=== PATIENT | male | born 1960 | race Caucasian/White ===

== ENCOUNTER 2018-02-13 21:54 | Emergency (ER) | payer SELFPAY ==
[2018-02-13] MEDS ORDERED: DIPHENHYDRAMINE HCL 50 MG CAPSULE PO ONE (23:40)
[2018-02-13] MEDS ORDERED: LORAZEPAM 1 MG TABLET PO ONE (23:41)
[2018-02-13] MEDS ORDERED: RISPERIDONE 1 MG TABLET PO ONE (23:41)
[2018-02-14] MEDS ORDERED: ZIPRASIDONE MESYLATE INJ/PF 20 MG SDV IM ONE (00:01)
[2018-02-14 00:50] LABS: ABSOLUTE EOSINOPHILS # (AUTO) 0.2 10^3/uL (0.0-0.6); ABSOLUTE LYMPHOCYTES (AUTO) 2.3 10^3/uL (0.5-4.7); ABSOLUTE MONOCYTES (AUTO) 0.5 10^3/uL (0.1-1.4); ABSOLUTE NEUT (AUTO) 1.4 10^3/uL (1.7-8.2); HEMATOCRIT 43.2 % (37.9-51.0); HEMOGLOBIN 15.1 g/dL (13.5-17.0); LYMPHOCYTES % (AUTO) 52.2 % (13-45); MEAN CORPUSCULAR HEMOGLOBIN 35.4 pg (27.0-33.4); MEAN CORPUSCULAR HGB CONC 35.1 g/dL (32.0-36.0); MEAN CORPUSCULAR VOLUME 101 fl (80-97); MONOCYTES % (AUTO) 11.3 % (3-13); PLATELET COUNT 234 10^3/uL (150-450); RED BLOOD COUNT 4.28 10^6/uL (4.35-5.55); RED CELL DISTRIBUTION WIDTH 15.7 % (11.5-14.0); SEGMENTED NEUTROPHILS % (AUTO) 31.5 % (42-78); TOTAL CELLS COUNTED % (AUTO) 100 %; WHITE BLOOD COUNT 4.4 10^3/uL (4.0-10.5)
[2018-02-14 01:15] LABS: ALANINE AMINOTRANSFERASE 30 U/L (21-72); ALBUMIN 4.3 g/dL (3.5-5.0); ALKALINE PHOSPHATASE 65 U/L (38-126); ANION GAP 16 (5-19); ASPARTATE AMINO TRANSFERASE 50 U/L (17-59); BILIRUBIN,DIRECT 0.3 mg/dL (0.0-0.4); BILIRUBIN,TOTAL 0.4 mg/dL (0.2-1.3); BLOOD UREA NITROGEN 4 mg/dL (7-20); CALCIUM 9.2 mg/dL (8.4-10.2); CARBON DIOXIDE 22 mmol/L (22-30); CHLORIDE 111 mmol/L (98-107); GLUCOSE 90 mg/dL (75-110); POTASSIUM 4.4 mmol/L (3.6-5.0); SODIUM 148.6 mmol/L (137-145)
[2018-02-14 01:16] LABS: ACETAMINOPHEN < 10 ug/mL (10-30); SALICYLATE < 1.0 mg/dL (2.0-20.0)
[2018-02-14 01:35] LABS: ALCOHOL 336 mg/dL (NONE DETECTED)
[2018-02-14 01:40] LABS: APPEARANCE,URINE CLEAR; BILIRUBIN,URINE NEGATIVE (NEGATIVE); COLOR,URINE STRAW; GLUCOSE, URINE NEGATIVE (NEGATIVE); KETONES,URINE NEGATIVE (NEGATIVE); LEUKOCYTE ESTERASE,URINE NEGATIVE (NEGATIVE); NITRITE,URINE NEGATIVE (NEGATIVE); PROTEIN,URINE NEGATIVE (NEGATIVE); URINE SPECIFIC GRAVITY 1.005; UROBILINOGEN,URINE NEGATIVE mg/dL (<2.0)
[2018-02-14 01:54] LABS: URINE AMPHETAMINES SCREEN NEGATIVE; URINE BARBITURATES SCREEN NEGATIVE; URINE BENZODIAZEPINES SCREEN NEGATIVE; URINE COCAINE SCREEN NEGATIVE; URINE MARIJUANA (THC) SCREEN UNCONFIRMED POSITIVE; URINE METHADONE SCREEN NEGATIVE; URINE PHENCYCLIDINE SCREEN NEGATIVE
--- NOTE | 2018-02-14 03:34 | ER Document Report ---
ED General - General Chief Complaint: Psych Problem Stated Complaint: PSYCH PROBLEM Time Seen by Provider: 02/13/18 23:36 Mode of Arrival: Ambulatory Information source: Patient TRAVEL OUTSIDE OF THE [place] IN LAST 30 DAYS: No - HPI Notes: Patient is a 57-year-old history of alcohol abuse currently is homeless presents with report of suicidal ideation stating he may drink himself to and report of homicidal thoughts to hurt other people, although he is somewhat nonspecific regarding how. The patient admits to drinking significant alcohol this evening. He reports previous history of alcohol withdrawal. The patient denies any headache, head injury, chest pain, shortness of breath, nausea, vomiting, fever, chills. The patient states he has recently come down from [place] , but he does not articulate a reason why he came to the area. Patient denies any numbness or paresthesia or focal weakness. Past Medical History - General Information source: Patient, Relative - Social History Smoking Status: Current Every Day Smoker Frequency of alcohol use: Heavy Drug Abuse: None Lives with: Alone Family History: Reviewed & Not Pertinent Review of Systems - Review of Systems -: Yes All other systems reviewed and negative Physical Exam - Vital signs Vitals: Temp Pulse Resp BP Pulse Ox 98.1 F 88 20 125/70 100 02/14/18 00:56 02/14/18 00:56 02/14/18 00:56 02/14/18 00:56 02/14/18 00:56 - Notes Notes: PHYSICAL EXAMINATION: GENERAL: no acute distress. HEAD: Atraumatic, normocephalic. EYES: Pupils equal round and reactive to light, extraocular movements intact, sclera anicteric, conjunctiva are normal. ENT: Nares patent, oropharynx clear without exudates. Moist mucous membranes. NECK: Normal range of motion, supple without lymphadenopathy LUNGS: Breath sounds clear to auscultation bilaterally and equal. No wheezes rales or rhonchi. HEART: Regular rate and rhythm without murmurs ABDOMEN: Soft, nontender, nondistended abdomen. No guarding, no rebound. No masses appreciated. Musculoskeletal: Normal range of motion, no pitting or edema. No cyanosis. NEUROLOGICAL: Cranial nerves grossly intact. Normal sensory, motor exams. Slurred speech with somewhat unsteady gait. Obvious smell of alcohol. PSYCH: Normal mood, normal affect. SKIN: Warm, Dry, normal turgor, no rashes or lesions noted. Course - Re-evaluation Re-evalutation: 02/14/18 03:34 Patient initially was given Ativan 1 mg p.o. and Risperdal 1 mg p.o. The patient stated he had taken Benadryl prior to arrival. Shortly thereafter, the patient was somewhat argumentative with the staff. The patient would not respond to appropriate redirection, and he was given Geodon 10 mg IM. Shortly thereafter he went to sleep and was no longer argumentative. 02/14/18 03:35 Alcohol level came back elevated at 336. Marijuana was positive. The patient was otherwise medically cleared for psychiatric evaluation which will be ordered for later in the morning to give him a chance to appropriately sober up. 02/14/18 03:36 - Vital Signs Vital signs: Temp Pulse Resp BP Pulse Ox 98.1 F 88 20 125/70 100 02/14/18 00:56 02/14/18 00:56 02/14/18 00:56 02/14/18 00:56 02/14/18 00:56 - Laboratory Result Diagrams: 02/14/18 00:32 02/14/18 00:32 Laboratory results interpreted by me: 02/14/18 02/14/18 00:32 00:32 RBC 4.28 L MCV 101 H MCH 35.4 H RDW 15.7 H Seg Neutrophils % 31.5 L Lymphocytes % 52.2 H Absolute Neutrophils 1.4 L Sodium 148.6 H Chloride 111 H BUN 4 L Salicylates < 1.0 L Acetaminophen < 10 L Serum Alcohol 336 H* Discharge - Discharge Clinical Impression: Suicidal ideation, Alcohol abuse, Marijuana abuse Depression Qualifiers: Depression Type: unspecified Qualified Code(s): F32.9 - Major depressive disorder, single episode, unspecified
--- NOTE | 2018-02-14 08:16 | EKG REPORT ---
SEVERITY:- NORMAL ECG - SINUS RHYTHM : Confirmed by: Sahra Ozuna MD 14-Feb-2018 08:15:29
--- NOTE | 2018-02-14 10:12 | ER Document Report ---
Doctor's Note Notes: Laboratory 02/14/18 02/14/18 02/14/18 00:00 00:00 00:32 WBC 4.4 RBC 4.28 L Hgb 15.1 Hct 43.2 MCV 101 H MCH 35.4 H MCHC 35.1 RDW 15.7 H Plt Count 234 Seg Neutrophils % 31.5 L Lymphocytes % 52.2 H Monocytes % 11.3 Eosinophils % 4.0 Basophils % 1.0 Absolute Neutrophils 1.4 L Absolute Lymphocytes 2.3 Absolute Monocytes 0.5 Absolute Eosinophils 0.2 Absolute Basophils 0.0 Sodium Potassium Chloride Carbon Dioxide Anion Gap BUN Creatinine Est GFR ( Amer) Est GFR (Non-Af Amer) Glucose Calcium Magnesium Total Bilirubin Direct Bilirubin Neonat Total Bilirubin Neonat Direct Bilirubin Neonat Indirect Bili AST ALT Alkaline Phosphatase Total Protein Albumin Urine Color STRAW Urine Appearance CLEAR Urine pH 6.0 Ur Specific [place] 1.005 Urine Protein NEGATIVE Urine Glucose (UA) NEGATIVE Urine Ketones NEGATIVE Urine Blood NEGATIVE Urine Nitrite NEGATIVE Urine Bilirubin NEGATIVE Urine Urobilinogen NEGATIVE Ur Leukocyte Esterase NEGATIVE Urine Bacteria (Auto) TRACE Urine Mucus (Auto) RARE Urine Ascorbic Acid NEGATIVE Salicylates Urine Opiates Screen NEGATIVE Urine Methadone Screen NEGATIVE Acetaminophen Ur Barbiturates Screen NEGATIVE Ur Phencyclidine Scrn NEGATIVE Ur Amphetamines Screen NEGATIVE U Benzodiazepines Scrn NEGATIVE Urine Cocaine Screen NEGATIVE U Marijuana (THC) Screen UNCONFIRMED POSITIVE Serum Alcohol 02/14/18 00:32 WBC RBC Hgb Hct MCV MCH MCHC RDW Plt Count Seg Neutrophils % Lymphocytes % Monocytes % Eosinophils % Basophils % Absolute Neutrophils Absolute Lymphocytes Absolute Monocytes Absolute Eosinophils Absolute Basophils Sodium 148.6 H Potassium 4.4 Chloride 111 H Carbon Dioxide 22 Anion Gap 16 BUN 4 L Creatinine 0.82 Est GFR ( Amer) > 60 Est GFR (Non-Af Amer) > 60 Glucose 90 Calcium 9.2 Magnesium 1.9 Total Bilirubin 0.4 Direct Bilirubin 0.3 Neonat Total Bilirubin Not Reportable Neonat Direct Bilirubin Not Reportable Neonat Indirect Bili Not Reportable AST 50 ALT 30 Alkaline Phosphatase 65 Total Protein 7.0 Albumin 4.3 Urine Color Urine Appearance Urine pH Ur Specific [place] Urine Protein Urine Glucose (UA) Urine Ketones Urine Blood Urine Nitrite Urine Bilirubin Urine Urobilinogen Ur Leukocyte Esterase Urine Bacteria (Auto) Urine Mucus (Auto) Urine Ascorbic Acid Salicylates < 1.0 L Urine Opiates Screen Urine Methadone Screen Acetaminophen < 10 L Ur Barbiturates Screen Ur Phencyclidine Scrn Ur Amphetamines Screen U Benzodiazepines Scrn Urine Cocaine Screen U Marijuana (THC) Screen Serum Alcohol 336 H* 02/14/18 10:11 Patient is a 57-year-old history of alcohol abuse currently is homeless presents with report of suicidal ideation stating he may drink himself to and report of homicidal thoughts to hurt other people, although he is somewhat nonspecific regarding how. The patient admits to drinking significant alcohol yesterday. As the rounding physician this AM, I assessed the patient's labs, vitals, and records. No concerning findings this morning. Patient denies any acute complaints. Patient is cleared for disposition by psychiatry. PHYSICAL EXAMINATION: GENERAL: Well-appearing, well-nourished and in no acute distress. HEAD: Atraumatic, normocephalic. LUNGS: No respiratory distress Musculoskeletal: Normal range of motion NEUROLOGICAL: Normal speech, normal gait. Patient cleared for discharge by psych team. [place] [facility]. 02/14/18 17:11
[2018-02-14] MEDS ORDERED: LORAZEPAM INJ 2 MG/1 ML VIAL ONE (12:45)
[2018-02-14] MEDS ORDERED: LORAZEPAM INJ 2 MG/1 ML VIAL IM ONE (12:51)
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
[2018-02-14 18:05] VITALS: BP 120/80
== END 2018-02-14 18:05 | disposition home or self-care (01) ==
LOC: ER 21:54
DX: F32.9 Major depressive disorder, single episode, unspecified (principal); F60.2 Antisocial personality disorder; F10.10 Alcohol abuse, uncomplicated; F12.10 Cannabis abuse, uncomplicated; R45.851 Suicidal ideations; R45.850 Homicidal ideations; F17.200 Nicotine dependence, unspecified, uncomplicated; Z59.0 Homelessness
CPT/HCPCS: 93005; 99285; 96372; 36415; 80307 ×4; 83735; 85025; 80053; 81001; 93010; J2060; J3486